=== PATIENT | female | born 1985 | race Hispanic/Latino ===

== ENCOUNTER 2021-09-05 03:12 | Emergency (ER) | payer SELFPAY ==
[~2021-09-05] VITALS: Ht 152.4 cm; Wt 115.2 kg
[~2021-09-05 03:12] MED LIST changes: -HYDROCODONE/APAP 7.5MG-325MG 1 EA TAB ONE; -LIDOCAINE HCL 2% LOCAL INJ 5 ML SDV VIAL INJ ONE; -PROPOFOL IV EMULSION 10 MG/ML 20 ML VIAL ONE
[2021-09-05 03:52] VITALS: BP 145/86
== END 2021-09-05 03:53 | disposition home or self-care (01) ==
LOC: ER 03:17
DX: Z43.3 Encounter for attention to colostomy (principal); R10.9 Unspecified abdominal pain; G89.29 Other chronic pain; F17.210 Nicotine dependence, cigarettes, uncomplicated
CPT/HCPCS: 99283

== ENCOUNTER → 2021-09-05 | Day surgery (SDC) | payer SELFPAY ==
[~2021-09-05] MED LIST: HYDROCODONE/APAP 7.5MG-325MG 1 EA TAB ONE; LIDOCAINE HCL 2% LOCAL INJ 5 ML SDV VIAL INJ ONE; PROPOFOL IV EMULSION 10 MG/ML 20 ML VIAL ONE; ULTRAM50 MG PO
[2021-09-05 08:25] VITALS: BP 125/68
== END | disposition home or self-care (01) ==
LOC: OR 05:35
PROVIDERS: ATTEND Internal Medicine Gastroenterology
DX: K57.92 Diverticulitis of intestine, part unspecified, without perforation or abscess without bleeding (principal); K62.9 Disease of anus and rectum, unspecified; Z93.3 Colostomy status; Z71.3 Dietary counseling and surveillance; E66.01 Morbid (severe) obesity due to excess calories; F41.9 Anxiety disorder, unspecified; Z01.812 Encounter for preprocedural laboratory examination; Z20.822 Contact with and (suspected) exposure to COVID-19; Z68.42 Body mass index [BMI] 45.0-49.9, adult; Z87.891 Personal history of nicotine dependence
CPT/HCPCS: 0223U; 36415; 44388; 81025; J2001; J2704; 45378